=== PATIENT | male | born 1955 | race Caucasian/White ===

== ENCOUNTER 2017-04-13 09:23 | Emergency (ER) | payer OTHER ==
[2017-04-13] MEDS ORDERED: LIDOCAINE 5% 1 EA PATCH TD ONE (09:46)
--- NOTE | 2017-04-13 09:50 | EDPHY ---
H & P Time Seen by Provider: 04/13/17 09:31 HPI/ROS: CHIEF COMPLAINT: Fever, difficulty urinating HISTORY OF PRESENT ILLNESS: The patient is a 61-year-old male who presents emergency department with 5 days of intermittent low-grade fever. He also complains of urinary frequency. He feels as though he cannot completely finished his stream due to spasming. He has not noticed any blood. He has no dysuria. He noted cloudy urine over the past day. He has no flank pain. No abdominal pain. No difficulty or pain with defecation. REVIEW OF SYSTEMS: My complete review of systems is negative except as mentioned in the HPI. Past Medical/Surgical History: Hypertension Past surgical history: Orthopedic surgery Social history: The patient does not smoke Smoking Status: Never smoked Physical Exam: Vitals noted GENERAL: Well-appearing, in no acute distress, alert. HEENT: Eyes normal to inspection, normal pharynx, no signs of dehydration. NECK: No thyromegaly, no lymphadenopathy, supple. RESPIRATORY: Clear to auscultation bilaterally, no rales, rhonchi or wheezing. CVS: Regular rate and rhythm, no rubs, murmurs, or gallops. ABDOMEN: Soft, nontender, nondistended, no organomegaly. Benign BACK: Normal to inspection, no CVA tenderness. SKIN: Normal color, no rash, warm, dry. No pallor. EXTREMITIES: No pedal edema, no calf tenderness, no Homans sign or cords, no joint swelling. NEURO/PSYCH: Alert and oriented x3, normal mood and affect, normal motor sensory exam. Constitutional: Initial Vital Signs Temperature (C) 36.7 C 04/13/17 09:28 Heart Rate 79 04/13/17 09:28 Respiratory Rate 18 04/13/17 09:28 Blood Pressure 125/77 H 04/13/17 09:28 O2 Sat (%) 95 04/13/17 09:28 O2 Delivery Mode Room Air Allergies/Adverse Reactions: No Known Allergies Allergy (Unverified 04/13/17 09:27) Home Medications: Medication Instructions Recorded Aspirin Buffered 325 mg Tab 04/13/17 Losartan-Hctz 100-25 mg Tab 04/13/17 Phenazopyridine HCl [Pyridium] 100 mg PO TID #6 tab 04/13/17 levOFLOXACIN [Levaquin] 750 mg PO DAILY #10 tab 04/13/17 Medical Decision Making ED Course/Re-evaluation: In the emergency department I discussed possible etiologies with the patient. I answered all his questions. A urine sample was obtained. Patient's urine showed signs of infection. Procedure: Bedside ultrasound ultrasound. Indication: Urinary tract infection, possible retention A bedside ultrasound was performed by me. The patient consented. Patient was noted to have minimal urine volume post voiding. There is no visible free fluid. The prostate was present. I discussed the result with the patient. I answered all his questions. He was given Levaquin 750 mg orally. I feel this is more likely urinary tract infection rather than prostatitis. However, Levaquin will cover both etiologies. The patient does not appear septic or toxic. He has normal vital signs. I do not feel he needs laboratory studies drawn at this time. Patient was given warnings prior to leaving. He will return with worsening symptoms. Differential Diagnosis: My differential includes but is not limited to urinary tract infection, pyelonephritis, prostatitis, bacteremia, sepsis, hematuria, malignancy, mass - Data Points Laboratory Results: 04/13/17 09:50 Urine Color PINO Urine Appearance MODERATELY TURBID Urine pH 5.0 (5.0-7.5) Ur Specific [place] 1.024 (1.002-1.030) Urine Protein 2+ H (NEGATIVE) Urine Ketones NEGATIVE (NEGATIVE) Urine Blood 3+ H (NEGATIVE) Urine Nitrate POSITIVE H (NEGATIVE) Urine Bilirubin NEGATIVE (NEGATIVE) Urine Urobilinogen NEGATIVE EU EU (0.2-1.0) Ur Leukocyte Esterase 3+ H (NEGATIVE) Urine RBC 50-182 /hpf H /hpf (0-3) Urine WBC 50-182 /hpf H /hpf (0-3) Ur Epithelial Cells TRACE /lpf /lpf (NONE-1+) Urine Bacteria 2+ /hpf H /hpf (NONE SEEN) Urine Mucus 1+ /lpf /lpf (NONE-1+) Urine Glucose NEGATIVE (NEGATIVE) Departure - Departure Disposition: Home, Routine, Self-Care Clinical Impression: Urinary tract infection Qualifiers: Urinary tract infection type: acute cystitis Hematuria presence: with hematuria Qualified Code(s): N30.01 - Acute cystitis with hematuria Condition: Good Instructions: Urinary Tract Infection in Men (ED) Additional Instructions: Return with increasing pain, fever, back pain, vomiting, or any other concerns. Prescriptions: levOFLOXACIN [Levaquin] 750 mg PO DAILY #10 tab Phenazopyridine HCl [Pyridium] 100 mg PO TID #6 tab
[2017-04-13 10:06] LABS: COLOR AMBER; LEUKOCYTE ESTERASE,URINE 3+ (NEGATIVE); NITRITE,URINE POSITIVE (NEGATIVE)
[2017-04-13 10:09] LABS: BACTERIA 2+ /hpf (NONE SEEN); MUCUS 1+ /lpf (NONE-1+); RBC,URINE 50-182 /hpf (0-3); WBC,URINE 50-182 /hpf (0-3)
[2017-04-13] MEDS ORDERED: PHENAZOPYRIDINE HCL 200 MG TAB PO ONE (10:24)
[2017-04-13 10:40] VITALS: BP 123/89; PULSE 73; RESP 16; TEMP 99; O2SAT 96
== END 2017-04-13 10:40 | disposition home or self-care (01) ==
DX: N30.01 Acute cystitis with hematuria (principal); B96.20 Unspecified Escherichia coli [E. coli] as the cause of diseases classified elsewhere; I10 Essential (primary) hypertension; Z79.82 Long term (current) use of aspirin